=== PATIENT | female | born 1965 | race Caucasian/White ===

== ENCOUNTER 2017-09-20 18:59 | Emergency (ER) | payer OTHER ==
[~2017-09-20] VITALS: Ht 157.5 cm; Wt 46.2 kg
[~2017-09-20 18:59] MED LIST: CALCIUM + D 601 EACH PO; COLACE100 MG PO; Ecotrin PO; Elavil PO; FLAGYL500 MG PO; FOSAMAX70 MG PO; LEXAPRO20 MG PO; METRONIDAZOLE500 MG PO; PROTONIX40 MG PO; REMERON30 M2 PO; REMERON45 MG PO; SEROQUEL100 MG PO; SUBOXONE 2 MG-1 EACH SL; TRAZODONE HCL100 MG PO; Vancocin Oral Solution PO; XANAX0.5 MG PO
[2017-09-20 21:40] LABS: HEMATOCRIT 33.1 % (36.0-46.0); HEMOGLOBIN 11.4 G/DL (11.9-15.5); MCH 31.4 PG (29.0-34.0); MCHC 34.4 G/DL (30.0-36.0); MCV 91.2 FL (83-99); PLATELET COUNT 232 K/uL (156-360); RBC DIS.WIDTH-CV 13.3 % (11.8-14.6); RBC DIS.WIDTH-SD 44.7 % (39-53); RED BLOOD COUNT 3.63 M/uL (3.80-5.20); WHITE BLOOD COUNT 12.1 K/uL (4.1-10.2)
[2017-09-20 21:49] LABS: CHLORIDE 102 mEq/L (99-109); POTASSIUM 3.4 mEq/L (3.7-5.4); SODIUM 137 mEq/L (136-147)
[2017-09-20 21:51] LABS: GLUCOSE 93 mg/dL (70-99)
[2017-09-20 21:55] LABS: CREATININE 0.7 mg/dL (0.6-1.3); GFR ESTIMATE (CALCULATED) > 59 mL/min/
[2017-09-20 21:56] LABS: UREA NITROGEN (BUN) 11 mg/dL (9-23)
[2017-09-20 22:01] LABS: TROP-I INTERPRETATION NEGATIVE; TROPONIN-I < 0.01 ng/mL (0.0-0.30)
[2017-09-20 22:04] LABS: QUANTITATIVE HCG < 4.0 MIU/ML
[2017-09-20] MEDS ORDERED: NORCO 5/3251 TABLET PO (23:15)
[2017-09-20 23:49] VITALS: BP 126/77
== END 2017-09-20 23:50 | disposition home or self-care (01) ==
LOC: EME 18:59
PROVIDERS: Physician Assistant Medical
DX: S20.219A Contusion of unspecified front wall of thorax, initial encounter (principal); V49.40XA Driver injured in collision with unspecified motor vehicles in traffic accident, initial encounter; Y92.410 Unspecified street and highway as the place of occurrence of the external cause; M85.80 Other specified disorders of bone density and structure, unspecified site; F17.200 Nicotine dependence, unspecified, uncomplicated; Z90.49 Acquired absence of other specified parts of digestive tract; Z88.0 Allergy status to penicillin
CPT/HCPCS: 71046; 71275; 80048; 84484; 84702; 85027; 93005; 99281; 99285; J7030